=== PATIENT | male | born 1950 | race Caucasian/White ===

== ENCOUNTER → 2016-06-19 | Outpatient (CLI) | payer OTHER ==
--- NOTE | 2016-06-19 09:01 | US ---
EXAMINATION TYPE: US liver DATE OF EXAM: 06/19/2016 8:08 AM COMPARISON: NONE CLINICAL HISTORY: R94.5 Elevated Liver Function Test. Abnormal liver function test EXAM MEASUREMENTS: Liver Length: 15.7 cm Gallbladder Wall: 0.3 cm CBD: 0.4 cm Right Kidney: 10.0 x 5.3 x 4.6 cm Pancreas: visualized portions wnl, head and tail obscured by overlying midline bowel gas Liver: heterogeneous with multiple hypoechoic lesions seen throughout with largest 2 in right lobe m easuring 2.9 x 2.6 x 3.1cm and 1.8 x 1.5 x 1.9cm Gallbladder: appears to be contracted (patient states he is NPO), multiple echogenic shadowing foci seen, visualized portion of wall measures wnl, limited by rib shadowing Evidence for sonographic Alvarado's sign: no CBD: visualized portions wnl, limited at head of pancreas by overlying bowel gas Right Kidney: wnl Free fluid seen in RUQ IMPRESSION: Multiple hypoechoic masses within the liver could be indicative of metastatic disease, co rrelate, consider CT with contrast A Yellow message has been communicated to Alice Ellsworth MD via the [employer] system on 06/19/2016 8:56 AM, Message ID [id number].
== END | disposition home or self-care (01) ==
LOC: RADUSWWP 07:37
PROVIDERS: ATTEND Internal Medicine
DX: R16.0 Hepatomegaly, not elsewhere classified (principal); R79.89 Other specified abnormal findings of blood chemistry
CPT/HCPCS: 76705

== ENCOUNTER → 2016-06-26 | Outpatient (CLI) | payer OTHER ==
--- NOTE | 2016-06-26 22:41 | CT ---
EXAMINATION TYPE: CT abdomen wo con DATE OF EXAM: 06/26/2016 6:20 PM COMPARISON: 02/12/2010 and ultrasound 06/19/2016. HISTORY: 66-year-old male abnormal US, liver mass. TECHNIQUE: Contiguous axial scanning of the abdomen without IV contrast. Coronal and sagittal reconst ructions performed. CT DLP: 249.60 mGycm Automated exposure control for dose reduction was used. FINDINGS: The heart is normal size without pericardial effusion. Lung bases clear without pleural effusion. Tiny hiatal hernia. There is mild abdominal ascites fluid especially in the perihepatic and right paracolic gutter region s. Mild diffuse anasarca type changes with a hazy edema within subcutaneous fat and throughout the in tra-abdominal fat as well. The liver has cirrhotic morphology with a nodular contour. There is focal volume loss and capsular retraction along the lateral right hepatic dome with associat ed 2.3 cm area of hypodensity. Very tight windowing was utilized and there is a possible 2.8 cm lesio n in the inferior right hepatic lobe along the gallbladder fossa, axial image 32. Lack of IV contrast limits the evaluation. There is cholelithiasis with a stone measuring 8 mm. Adrenal glands, spleen, and pancreas show no gross abnormality. There is mild bilateral pelvicaliectasis, right greater than left with severe urinary distention of t he bladder up to the level of the umbilicus and extending from front to back to abut the anterior abd ominal wall musculature and sacral promontory. Moderate atherosclerotic calcifications within the abdominal aorta and iliac arteries. No dilated small bowel or free air. Scattered mild stool burden. The lack of IV contrast and anasarca type changes limits assessment for abdominal lymphadenopathy. Bones: Bilateral L5 pars defects with grade 1 anterolisthesis at L5-S1. Superior endplate Schmorl's n ode of T12. No osseous destructive process. IMPRESSION: 1. CIRRHOTIC MORPHOLOGY OF THE LIVER. MILD ABDOMINAL ASCITES MAY REFLECT UNDERLYING PORTAL VENOUS HYP ERTENSION. 2. FLUID OVERLOAD WITH DIFFUSE ANASARCA TYPE CHANGE. 3. TIGHT WINDOWING ON THIS NONCONTRAST STUDY SUGGESTS A 2.8 CM LESION IN THE RIGHT LIVER LOBE ALONG T HE GALLBLADDER FOSSA. HEPATOMA REMAINS TO BE EXCLUDED. 4. ADDITIONAL 2.3 CM HYPODENSE LESION ALONG THE LATERAL RIGHT HEPATIC DOME WITH ASSOCIATED CAPSULAR R ETRACTION. DIFFERENTIAL CONSIDERATIONS INCLUDE BOTH CONFLUENT FIBROSIS AND PERIPHERAL CHOLANGIOCARCIN VICENTE. CORRELATE WITH TUMOR MARKERS. LIVER MRI COULD PROVIDE FURTHER CHARACTERIZATION. 5. SEVERE URINARY BLADDER DISTENTION WITH THE BLADDER DOME REACHING UP TO THE LEVEL OF THE UMBILICUS. THERE IS SECONDARY FULLNESS OF THE RENAL COLLECTING SYSTEMS. CORRELATE FOR BLADDER OUTLET OBSTRUCTIO N. 6. CHOLELITHIASIS AND BILATERAL L5 PARS DEFECTS WITH GRADE 1 ANTEROLISTHESIS AT L5-S1.
== END | disposition home or self-care (01) ==
LOC: RADCTMAIN 17:02
PROVIDERS: ATTEND Internal Medicine
DX: K76.89 Other specified diseases of liver (principal); K74.60 Unspecified cirrhosis of liver; K80.20 Calculus of gallbladder without cholecystitis without obstruction; E87.79 Other fluid overload; N32.89 Other specified disorders of bladder; N28.89 Other specified disorders of kidney and ureter; R18.8 Other ascites
CPT/HCPCS: 74150

== ENCOUNTER → 2016-07-17 | Outpatient (CLI) | payer OTHER | END | disposition home or self-care (01) | LOC: LABWHC1 15:41 | PROVIDERS: ATTEND Physician Assistant | DX: K76.9 Liver disease, unspecified (principal) | CPT/HCPCS: 36415; 82105 ==

== ENCOUNTER 2016-10-02 09:00 | Day surgery (SDC) | payer OTHER ==
[2016-10-02 09:31] LABS: Mean Platelet Volume 7.6
[2016-10-02 09:33] VITALS: RESP 20; TEMP 97.2
[2016-10-02 09:39] LABS: Non-African American GFR(MDRD) >60 (>60 ml/min/1.73 sqM)
[2016-10-02 09:50] LABS: INR 1.3 (<1.2); Prothrombin Time 12.8 sec (9.0-12.0)
[2016-10-02] MEDS: ALBUMIN HUMAN 25% 50 ML in EMPTY BAG 1 BAG IVPB SCH ×4 (10:33→11:25)
[2016-10-02 10:55] LABS: Glucose,Whole Blood 295 mg/dL (75-99)
[2016-10-02 11:52] VITALS: BP 139/75; PULSE 73
--- NOTE | 2016-10-02 12:22 | US ---
Therapeutic paracentesis. DATE OF EXAM: 10/02/2016 CLINICAL HISTORY: Ascites The procedure was discussed with the patient. The risks, complications, benefits, and alternatives we re discussed and any questions were answered. Informed consent was obtained. The patient was placed s upine on the ultrasound table and prepped and draped in the usual sterile fashion. All elements of maximal barrier technique were utilized. Under ultrasound guidance, access into the right lower quadrant was obtained, via the paracentesis catheter system and direct ultrasound guidanc e. Approximately 10.6 liters of straw-colored fluid was removed. The patient was stable throughout the p rocedure and remained stable upon discharge from Department of Radiology. IMPRESSION: Successful therapeutic paracentesis under ultrasound guidance.
== END 2016-10-02 12:10 | disposition home or self-care (01) ==
LOC: RADPROMAIN 09:00
PROVIDERS: ATTEND Internal Medicine Gastroenterology
CPT/HCPCS: 36415; 49083; 82565; 85049; 85610

== ENCOUNTER 2016-10-16 09:04 | Day surgery (SDC) | payer OTHER ==
[2016-10-16 09:44] VITALS: TEMP 98.2
[2016-10-16 09:54] LABS: INR 1.2 (<1.2); Prothrombin Time 12.2 sec (9.0-12.0)
[2016-10-16 10:03] LABS: Non-African American GFR(MDRD) >60 (>60 ml/min/1.73 sqM)
[2016-10-16 10:40] VITALS: RESP 14
[2016-10-16 10:58] LABS: Glucose,Whole Blood 346 mg/dL (75-99)
[2016-10-16 12:15] VITALS: BP 115/59; PULSE 78
--- NOTE | 2016-10-16 12:54 | US ---
Therapeutic paracentesis. DATE OF EXAM: 10/16/2016 CLINICAL HISTORY: Ascites The procedure was discussed with the patient. The risks, complications, benefits, and alternatives we re discussed and any questions were answered. Informed consent was obtained. The patient was placed s upine on the ultrasound table and prepped and draped in the usual sterile fashion. All elements of maximal barrier technique were utilized. Under ultrasound guidance, access into the right lower quadrant was obtained, via the paracentesis catheter system and direct ultrasound guidanc e. Approximately 10.25 liters of straw-colored fluid was removed. The patient was stable throughout the procedure and remained stable upon discharge from Department of Radiology. IMPRESSION: Successful therapeutic paracentesis under ultrasound guidance.
== END 2016-10-16 12:22 | disposition home or self-care (01) ==
LOC: RADPROMAIN 09:04
PROVIDERS: ATTEND Internal Medicine Gastroenterology
DX: R18.8 Other ascites (principal)
CPT/HCPCS: 49083; 82565; 85049; 85610

== ENCOUNTER 2016-10-20 12:01 | Day surgery (SDC) | payer OTHER ==
[~2016-10-20 12:01] MED LIST: Pre Op ABX Message 1 EACH MISC MISCELLANE ONE
[2016-10-20 12:21] VITALS: BMI 21.4
[2016-10-20] MEDS ORDERED: LACTATED RINGERS 1,000 ML IV SCH (12:32)
[2016-10-20 12:39] VITALS: RESP 16; TEMP 98
[2016-10-20 12:55] LABS: Glucose,Whole Blood 374 mg/dL (75-99)
[2016-10-20] MEDS ORDERED: LIDOCAINE 1% 20 ML VIAL (10MG/ML) FOR IV START INTRADERMA ONE (12:56)
[2016-10-20] MEDS ORDERED: INSULIN LISPRO (humaLOG) 300 UNIT/3 ML VIAL SQ ONE (12:57)
--- NOTE | 2016-10-20 12:58 | P.GSHP ---
History of Present Illness H&P Date: 10/20/16 Chief Complaint: Recurrent ascites Patient is here today for peritoneal catheter placement. 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 He had his last percutaneous drain procedure last week. INR was normal at that time. Platelets are normal. Patient says he is already feeling the fluid reaccumulate. No nausea or vomiting. Past Medical History Past Medical History: Cancer, Dementia, Diabetes Mellitus, Hypertension, Liver Disease Additional Past Medical History / Comment(s): liver cirrohsis, cryoablation 2013 , history of liver ca and Hep C, History of Any Multi-Drug Resistant Organisms: MRSA Date of last positivie culture/infection: 02/2009 MDRO Source:: unknown Past Surgical History: No Surgical Hx Reported Past Anesthesia/Blood Transfusion Reactions: No Reported Reaction Smoking Status: Heavy tobacco smoker - Past Family History Mother Family Medical History: Diabetes Mellitus, Hypertension Medications and Allergies Home Medications Medication Instructions Recorded Confirmed Type Citalopram Hydrobromide 40 mg PO DAILY 02/10/15 10/20/16 History [Citalopram HBr] Insulin Glargine [Lantus] 35 unit SQ HS 02/10/15 10/20/16 History Metoprolol Succinate [Toprol XL] 12.5 mg PO BID 02/10/15 10/20/16 History Omeprazole [PriLOSEC] 20 mg PO AC-BRKFST 02/10/15 10/20/16 History glipiZIDE [Glucotrol] 10 mg PO DAILY 02/10/15 10/20/16 History Furosemide [Lasix] 40 mg PO DAILY 09/26/16 10/20/16 History Spironolactone [Aldactone] 100 mg PO BID 09/26/16 10/20/16 History Allergies Allergy/AdvReac Type Severity Reaction Status Date / Time No Known Allergies Allergy Verified 10/20/16 12:36 Surgical - Exam Vital Signs Temp Pulse Resp BP Pulse Ox 98 F 83 16 138/87 98 10/20/16 12:37 10/20/16 12:37 10/20/16 12:37 10/20/16 12:37 10/20/16 12:37 Physical exam: General: Cachectic, malnourished-appearing elderly male HEENT: Normocephalic, sclerae nonicteric Abdomen: Distended with dullness, nontender Extremities: No edema Neuro: Alert and oriented Results - Labs Abnormal Lab Results - Last 24 Hours (Table) 10/20/16 Range/Units 12:47 POC Glucose (mg/dL) 374 H (75-99) mg/dL Assessment and Plan (1) Ascites Narrative/Plan: Will proceed with peritoneal catheter placement at this time. Risks of bleeding , infection, poor function, bowel injury, anesthesia related complications including cardiac and respiratory failure were discussed. They understand and wish to proceed. Status: Acute
[2016-10-20] MEDS ORDERED: PROPOFOL 10 MG/ML 20 ML VIAL IV ONE (13:02)
[2016-10-20] MEDS ORDERED: MIDAZOLAM 2 MG/2 ML VIAL ONE (13:02)
[2016-10-20] MEDS ORDERED: SODIUM CHLORIDE 0.9% 50 ML with ceFAZolin 2,000 MG IV ONE ×2 (13:02)
[2016-10-20] MEDS ORDERED: fentaNYL (PF) 50 MCG/ML 2 ML AMP ONE (13:02)
[2016-10-20] MEDS ORDERED: BUPIVACAINE (PF) 0.25% 30 ML VIAL SQ ONE ×2 (13:26)
[2016-10-20 13:31] LABS: INR 1.2 (<1.2); Prothrombin Time 11.6 sec (9.0-12.0)
[2016-10-20] MEDS ORDERED: HYDROcodone/APAP 5-325MG 1 EACH TAB PO PRN (13:59)
[2016-10-20] MEDS ORDERED: NALOXONE 0.4 MG/ML 1 ML VIAL IV PRN (13:59)
[2016-10-20] MEDS ORDERED: ONDANSETRON 4 MG/2 ML VIAL IVP PRN (13:59)
--- NOTE | 2016-10-20 14:02 | P.OP ---
Date of Procedure: 10/20/16 Preoperative Diagnosis: Postoperative Diagnosis: Procedure(s) Performed: PREOPERATIVE DIAGNOSIS: Recurrent malignant ascites POSTOPERATIVE DIAGNOSIS: Same PROCEDURE: Peritoneal catheter insertion SURGEON: Pau EBL: Minimal ANESTHESIA: Sedation plus local COMPLICATIONS: None OPERATIVE PROCEDURE: The patient was placed in the operative table in the supine position. His abdomen was prepped and draped in usual sterile fashion. The ultrasound was used to identify an open area in the right periumbilical location. A small vertical incision was made in the right periumbilical location. Dissection down through the subcutaneous tissues took place using electrocautery. The anterior rectus was divided vertically using the scalpel. The rectus was bluntly. The posterior rectus was visualized. An 0 Vicryl pursestring was placed. A small opening in the posterior rectus fascia and peritoneum took place using a Metzenbaum scissors. There were no adhesions to the suture that was placed. 750 mL of serous fluid was evacuated. The pigtail catheter was advanced into the pelvis over a stylette. No resistance was met. The inner cuff was secured to the fascia using the 0 Vicryl pursestring that was placed. The catheter was tunneled to an exit site in the right lateral lower quadrant. The catheter was then allowed to drain further. The anterior rectus fascia was then reapproximated using a running 0 Vicryl stitch. The subcutaneous tissues reprepped using 3-0 Vicryl sutures and the skin using 4-0 Monocryl sutures. The outpatient dialysis adapter was applied to the end of the catheter. A sterile dressings then applied after Steri- Strips were placed over the incision. DISPOSITION: Stable to recovery room Implants: Indications for Procedure: Operative Findings: Description of Procedure:
[2016-10-20 14:15] VITALS: BP 147/76; PULSE 71
== END 2016-10-20 14:33 | disposition home or self-care (01) ==
LOC: OR 12:01
PROVIDERS: ATTEND Surgery
DX: R18.0 Malignant ascites (principal); Z85.05 Personal history of malignant neoplasm of liver; B19.20 Unspecified viral hepatitis C without hepatic coma; E11.9 Type 2 diabetes mellitus without complications; Z79.4 Long term (current) use of insulin; Z79.84 Long term (current) use of oral hypoglycemic drugs; I10 Essential (primary) hypertension; F17.200 Nicotine dependence, unspecified, uncomplicated; F03.90 Unspecified dementia, unspecified severity, without behavioral disturbance, psychotic disturbance, mood disturbance, and anxiety; Z86.14 Personal history of Methicillin resistant Staphylococcus aureus infection; Z79.899 Other long term (current) drug therapy
CPT/HCPCS: 85610; 49418; C1752; J2250; J3010; J0690; J2704